=== PATIENT | female | born 1975 | race African-American/Black ===

== ENCOUNTER → 2018-01-11 | Day surgery (SDC) | payer OTHER ==
--- NOTE | 2018-01-11 14:16 | OP ---
DATE OF OPERATION: 01/11/2018 PREOPERATIVE DIAGNOSIS: Abnormal right mammography. POSTOPERATIVE DIAGNOSIS: Abnormal right mammography. PROCEDURE: Right stereotactic needle biopsy with clip. SURGEON: Shayla Maldonado MD ANESTHESIA: Local. COMPLICATIONS: None. This is a sterile procedure. INDICATION FOR PROCEDURE: Patient presented with a screening mammography that noted a new cluster of microcalcifications posterior to her prior lumpectomy site for DCIS in the outer right breast. Recommendation was for needle biopsy. The procedure was discussed with her, including the need for a clip. PROCEDURE IN DETAIL: Patient brought to [facility] [place], laid prone on the Lor[place] table. Using the lateral approach, the calcifications at the lumpectomy site posteriorly were identified. A sterile prepped obtained. A target was chosen. There was a positive stroke margin. Using Betadine and 1% lidocaine, a 10-gauge Suros device was used to take several cores from this area. Cores showed calcifications within them. These were handled using calcification protocol. A clip was deployed in the area. Hemostasis assured with direct pressure. The incision was closed with Steri-Strips. She tolerated the procedure well and left the breast imaging center in good condition. SHAYLA MALDONADO M.D. [id number]
--- NOTE | 2018-01-12 16:17 | PATH ---
Surgical Pathology Report Patient Name: HIEN PRATHER [facility]. Rec. #: [id number] /Age/Gender: 1975 (Age: 42) / F Account: [id number] Location: [facility] Taken: 01/11/2018 Received: 01/11/2018 Reported: 01/12/2018 Physicians: Shayla Chen M.D. Specimen(s) Received A: LEFT BREAST SPECIMEN WITH CALCIFICATIONS B: LEFT BREAST SPECIMEN WITHOUT CALCIFICATIONS Clinical History History of right breast lumpectomy for DCIS with new microcalcification at lumpectomy site Mammographic findings: Microcalcification, suspicious Final Diagnosis A. BREAST, RIGHT, WITH CALCIFICATIONS, STEREOTACTIC BIOPSY: DUCTAL CARCINOMA IN SITU (DCIS), MICROPAPILLARY AND FLAT TYPE, INTERMEDIATE NUCLEAR GRADE WITH MODERATE NECROSIS AND ASSOCIATED CALCIFICATIONS. B. BREAST, RIGHT, WITHOUT CALCIFICATIONS, STITCH AT THE BIOPSY: FOCAL ATYPICAL DUCTAL HYPERPLASIA (ADH) AND FLAT EPITHELIAL ATYPIA (FEA) WITH ASSOCIATED CALCIFICATIONS. Results of ER and AK studies performed on block A at [facility] are as follows: ER (clone [id number] mouse monoclonal antibody by Leica): > 90 % nuclear staining with strong intensity (Positive). AK (clone16 mouse monoclonal antibody by Leica): > 90 % nuclear staining with strong intensity (Positive). Comment: Case discussed with on 01/12/18. Positive and negative controls (internal if applicable) show appropriate results. Formalin fixation and cold ischemic times are within current ASCO/CAP recommendations for ER, AK and Her2 testing. Electronically Signed Li Anderson M.D. Gross Description A. Received in formalin labeled "right breast with calcifications," are 5 costello-yellow, cylindrical portions of fibroadipose tissue ranging from 0.5-3.2 cm in length and averaging 0.3 cm in diameter. The specimens are submitted in toto in one cassette. B. Received in formalin labeled "right breast without calcifications," are 4 costello-yellow, cylindrical portions of fibroadipose tissue ranging from 0.5-2.6 cm in length and averaging 0.3 cm in diameter. The specimens are submitted in toto in one cassette. Time to formalin fixation: 5 minutes Total formalin fixation time: Approximately 7 hours. 01/11/201801/11/2018
== END | disposition home or self-care (01) ==
LOC: FMAMMOTONE 09:20
PROVIDERS: ATTEND Surgery
PROC: 0HBT3ZX Excision of Right Breast, Percutaneous Approach, Diagnostic (ICD-10-PCS; principal; 2018-01-11)
DX: D05.11 Intraductal carcinoma in situ of right breast (principal); R92.8 Other abnormal and inconclusive findings on diagnostic imaging of breast; N60.91 Unspecified benign mammary dysplasia of right breast
CPT/HCPCS: 19081; 87899; 88305-TC; 88342-TC; A4648

== ENCOUNTER 2018-02-16 18:34 | Emergency (ER) | payer OTHER ==
--- NOTE | 2018-02-16 18:57 | PDOC ---
Rapid Medical Evaluation Time Seen by Provider: 02/16/18 18:56 Medical Evaluation: Allergies Allergy/AdvReac Type Severity Reaction Status Date / Time No Known Drug Allergies Allergy Verified 04/14/16 08:23 I have performed a brief in-person evaluation of this patient. The patient presents with a chief complaint of: ear and throat pain since yesterday. No fever. No cough. Patient had flu and pneumonia vaccines this year Pertinent physical exam findings: Tender anterior cervical lymphadenopathy. Patient appears very well. Suspect allergies. Patient's requesting test. I have ordered the following: none The patient will proceed to the ED for further evaluation.
[2018-02-16 19:00] VITALS: BP 158/124; PULSE 79; TEMP 98.3; BMI 41.1
--- NOTE | 2018-02-16 20:04 | PDOC ---
History of Present Illness - General Chief Complaint: Cold Symptoms Stated Complaint: SORE THROAT/EAR PAIN Time Seen by Provider: 02/16/18 18:56 History Source: Patient Exam Limitations: No Limitations - History of Present Illness Initial Comments: 02/16/18 19:48 42-year-old female presents to the ED with a sore throat, chills and painful swallowing since yesterday. Patient states took Tylenol prior to arrival. Patient has no other complaints including cough, shortness of breath or headache. Patient denies stiff neck or thyroid disorder. Timing/Duration: reports: yesterday Severity: reports: mild Associated Symptoms: reports: fever/chills, sore throat Past History - Past Medical History Allergies/Adverse Reactions: Allergies Allergy/AdvReac Type Severity Reaction Status Date / Time No Known Drug Allergies Allergy Verified 02/16/18 18:56 Home Medications: Ambulatory Orders Amlodipine Besylate [Norvasc -] 10 mg PO DAILY 12/21/12 Aspirin [ASA -] 81 mg PO DAILY 11/04/14 Furosemide [Lasix -] 20 mg PO DAILY 11/04/14 Diazepam [Valium] 5 mg PO BID PRN #8 tablet MDD 2 04/14/16 Multivitamin [Poly-Vitamin] 1 each PO DAILY 04/14/16 Asthma: Yes Cancer: Yes (BREAST) COPD: No GI Disorders: Yes (ACID REFLUX) HTN: Yes Thyroid Disease: No - Surgical History Abdominal Surgery: Yes Cholecystectomy: Yes - Suicide/Smoking/Psychosocial Hx Smoking Status: No (STOPPED 12/07/12) Smoking History: Never smoked Have you smoked in the past 12 months: Yes Number of Cigarettes Smoked Daily: 4 If you are a former smoker, when did you quit?: 07/05/14 Hx Alcohol Use: No Drug/Substance Use Hx: No Substance Use Type: None Hx Substance Use Treatment: No Patient Lives Alone: No Lives with/in: spouse/SO Review of Systems - Review of Systems Able to Perform ROS?: Yes Constitutional: Yes: Fever HEENTM: Yes: Throat Pain, Difficulty Swallowing Respiratory: No: Symptoms reported Cardiac (ROS): No: Symptoms Reported ABD/GI: No: Symptoms Reported : No: Symptoms Reported Musculoskeletal: No: Symptoms Reported Integumentary: No: Symptoms Reported Neurological: No: Symptoms reported *Physical Exam - Vital Signs Last Vital Signs Temp Pulse Resp BP Pulse Ox 98.3 F 79 17 158/124 97 02/16/18 18:56 02/16/18 18:56 02/16/18 18:56 02/16/18 18:56 02/16/18 18:56 - Physical Exam General Appearance: Yes: Nourished, Appropriately Dressed. No: Apparent Distress HEENT: positive: EOMI, ADDIS, TMs Normal, Pharyngeal Erythema, Tonsillar Erythema. negative: Tonsillar Exudate Neck: negative: Supple, Lymphadenopathy (R), Lymphadenopathy (L) Respiratory/Chest: positive: Lungs Clear, Normal Breath Sounds. negative: Respiratory Distress, Accessory Muscle Use Cardiovascular: positive: Regular Rhythm, Regular Rate, Murmur Gastrointestinal/Abdominal: positive: Soft Extremity: positive: Normal Capillary Refill Integumentary: positive: Normal Color, Warm, Moist Neurologic: positive: Motor Strength 5/5 (ambulatory) ED Treatment Course - ADDITIONAL ORDERS Additional order review: Laboratory Results 02/16/18 19:12 Urine HCG, Qual Negative Medical Decision Making - Medical Decision Making 02/16/18 20:08 Patient complains of sore throat and fever. Patient also requesting a test since she did not get her menses this week. Rapid strep and urine sent from rapid medical evaluation. Urine negative upon my arrival. Rapid strep pending. We'll treat patient based on clinical exam for tonsillitis. *DC/Admit/Observation/Transfer Diagnosis at time of Disposition: Tonsillitis - Discharge Dispostion Disposition: HOME Condition at time of disposition: Good - Referrals Referrals: Tawanna Starks [Primary Care Provider] - - Patient Instructions Printed Discharge Instructions: DI for Pharyngitis/Tonsillopharyngitis -- Adult Additional Instructions: I recommend taking the amoxicillin as prescribed and taking Tylenol or Motrin for discomfort. - Post Discharge Activity
== END 2018-02-16 20:13 | disposition home or self-care (01) ==
LOC: JERFT 18:34
DX: J03.90 Acute tonsillitis, unspecified (principal)
CPT/HCPCS: 84703; 87070; 87430; 99281-25

== ENCOUNTER 2018-03-16 07:53 | Inpatient (IN) | payer OTHER ==
[2018-03-15 13:00] VITALS: BMI 41.1
[2018-03-16] MEDS ORDERED: BUPIVACAINE HCL/PF 0.5% (5MG/ML) 10 ML VIAL ONE (09:12)
[2018-03-16] MEDS ORDERED: BUPIVACAINE LIPOSOME/PF (EXPAREL) 266 MG/20 ML VIAL NR ONE (09:30)
--- NOTE | 2018-03-16 11:17 | HP ---
History & Physical Update - History History: No Change - Physical Physical: No Change - Assessment Assessment: No Change - Plan Plan: No Change (no changes since visit with Dr. Bradford on 03/07/18)
[2018-03-16] MEDS ORDERED: DEXAMETHASONE SOD PHOSPHATE 4 MG/1 ML VIAL ONE (11:37)
[2018-03-16] MEDS ORDERED: PROPOFOL 20 ML ONE (11:37)
[2018-03-16] MEDS ORDERED: LIDOCAINE HCL/PF 2% SDV 5ML VIAL ONE (11:37)
[2018-03-16] MEDS ORDERED: ROCURONIUM BROMIDE 50 MG/5 ML VIAL ONE (11:37)
[2018-03-16] MEDS ORDERED: MIDAZOLAM HCL 2 MG/2 ML SINGLE DOSE VIAL ONE (11:37)
[2018-03-16] MEDS ORDERED: ceFAZolin SODIUM 1 GM VIAL IVPB ONE (11:57)
[2018-03-16] MEDS ORDERED: ceFAZolin SODIUM 1 GM VIAL ONE (12:08)
[2018-03-16] MEDS ORDERED: LIDOCAINE HCL 1%, 10 MG/ML (20ML VIAL) NR ONE (12:09)
[2018-03-16 13:39] VITALS: TEMP 98
--- NOTE | 2018-03-16 14:02 | OP ---
DATE OF OPERATION: 03/16/2018 PREOPERATIVE DIAGNOSIS: Right breast ductal carcinoma in situ. POSTOPERATIVE DIAGNOSIS: Right breast ductal carcinoma in situ. PROCEDURE: Right breast wire localized lumpectomy. SURGEON: Shayla Maldonado MD ANESTHESIA: General ESTIMATED BLOOD LOSS: Minimal. COMPLICATIONS: None. This was a sterile procedure. INDICATIONS FOR PROCEDURE: The patient had a right breast lumpectomy in 2014 for right breast DCIS but did not follow through with adjuvant radiation and presented with a new mammogram and noted new microcalcifications at the lumpectomy bed and I did a stereotactic needle biopsy that again showed the same DCIS. Recommendation was a lumpectomy and radiation. The procedure was discussed with all of the questions answered. PROCEDURE IN DETAIL: The patient was brought to [facility] in [facility] and taken down to breast imaging where a wire was used to localize the clip in the upper outer right breast. She was brought to the operating room and after induction of general anesthesia and IV antibiotics; the right breast was prepped and draped in the usual sterile fashion. The area in the upper outer right breast was anesthetized with 1% lidocaine without epinephrine. The prior lumpectomy incision was sharply incised and the wire was used as a guide to get down to the area of interest. This was excised en bloc and tagged with a long stitch lateral and short stitch superior and sent as a right breast lumpectomy for special radiographs. I felt I was close anteriorly on the wire; therefore, I took a new anterior margin of the stitch at the new margin and I also took a new superior margin with a stitch at the old margin. These were all sent to Pathology for permanent section. Specimen radiograph shows the clip and wire to be intact within the specimen. This was sent to Pathology for permanent section. Hemostasis was assured with electrocautery. The parenchyma was approximated with interrupted 2-0 Vicryl. The skin was approximated with 2-0 Vicryl and running 4-0 Prolene. A sterile dressing with Tegaderm and 4 x 4s were applied. She tolerated the procedure well and was taken to the recovery room in good condition. SHAYLA MALDONADO M.D. [id number]
[2018-03-16] MEDS ORDERED: ONDANSETRON 4 MG/2 ML VIAL IVPUSH PRN (14:28)
[2018-03-16] MEDS ORDERED: oxyCODONE HCL 5 MG TABLET PO PRN ×2 (14:29)
[2018-03-16] MEDS ORDERED: LACTATED RINGERS SOLUTION 1,000 ML IV SCH (14:30)
[2018-03-16] MEDS ORDERED: oxyCODONE HCL 5 MG TABLET ONE (14:45)
[2018-03-16] MEDS ORDERED: oxyCODONE HCL 5 MG TABLET PO ONE (14:50)
[2018-03-16 16:57] VITALS: BP 152/85; PULSE 75
--- NOTE | 2018-03-20 09:57 | PATH ---
Surgical Pathology Report Patient Name: HIEN PRATHER [facility] Rec. #: [id number] /Age/Gender: 1975 (Age: 42) / F Account: [id number] Location: [facility] Taken: 03/16/2018 Received: 03/16/2018 Reported: 03/20/2018 Physicians: Shayla Chen M.D. Specimen(s) Received A: RIGHT BREAST LUMPECTOMY B: RIGHT BREAST NEW SUPERIOR MARGIN, STITCH ORDAZ OLD MARGIN C: RIGHT BREAST NEW ANTERIOR MASS, STITCH ORDAZ NEW MARGIN Clinical History DCIS, History of right breast DCIS status post lumpectomy 2014 Final Diagnosis A. BREAST, RIGHT, LUMPECTOMY: DUCTAL CARCINOMA IN SITU (DCIS), FLAT, SOLID AND MICROPAPILLARY TYPE, HIGH NUCLEAR GRADE WITH EXTENSIVE NECROSIS, PRESENT IN ONE OF NINE SLIDES (12/06). IN SITU CARCINOMA MEASURES 7 MM IN GREATEST DIMENSION, MICROSCOPICALLY. SURGICAL MARGINS ARE UNINVOLVED BY CARCINOMA; CARCINOMA IS 1.1 CM FROM CLOSEST DEEP MARGIN. SEE SPECIMEN B-C FOR ADDITIONAL MARGINS. REMAINDER OF BREAST TISSUE SHOWS STROMAL FIBROSIS, MICROCYSTS, COLUMNAR CELL CHANGE, FOCAL ATYPICAL DUCTAL HYPERPLASIA AND FLAT EPITHELIAL ATYPIA (FEA). PRIOR BIOPSY CHANGES ARE PRESENT. PATHOLOGIC STAGE (PTNM): pTis pNx. SEE DCIS CASE SUMMARY BELOW. B. BREAST, RIGHT, NEW SUPERIOR MARGIN, EXCISION: FLAT EPITHELIAL ATYPIA (FEA) WITH ASSOCIATED MICROCALCIFICATIONS. C. BREAST, RIGHT, NEW ANTERIOR MARGIN, EXCISION: FOCAL FLAT EPITHELIAL ATYPIA (FEA) WITH ASSOCIATED RARE MICROCALCIFICATIONS. Comments DCIS of the Breast: Surgical Pathology Cancer Case Summary (Based on AJCC TNM 8 th edition) Procedure _X_ Excision (less than total mastectomy) Specimen Laterality _X_ Right Size (Extent) of DCIS Estimated size (extent) of DCIS (greatest dimension using gross and microscopic evaluation): at least (millimeters) _7__ mm Number of blocks with DCIS: _1__ Number of blocks examined: _9__ Histologic Type _X_ Ductal carcinoma in situ Architectural Patterns _X_ Micropapillary _X_ Solid _X_ Other (specify): flat Nuclear Grade _X_ Grade III (high) Necrosis _X_ Present, central (expansive "comedo" necrosis) Margins _X_ Uninvolved by DCIS Distance from closest margin (millimeters): 11 mm Specify closest margin: Deep Regional Lymph Nodes _X_ No lymph nodes submitted or found Pathologic Stage Classification (pTNM, AJCC 8th Edition) Primary Tumor (pT) _X_ pTis (DCIS): Ductal carcinoma in situ Regional Lymph Nodes (pN) (None) (pN) : pNX Microcalcifications _X_ Present in nonneoplastic tissue Electronically Signed Oanh Andino M.D. Gross Description A. Received fresh on an AccuGrid, labeled "right breast lumpectomy," is a 6.5 x 5.0 x 2.0 cm. costello-yellow, irregular, portion of fibroadipose tissue with a needle localization wire present. There is a short suture marking the superior aspect and a long suture marking the lateral aspect, per the surgeon. There is no skin or nipple present. The specimen is inked as follows: superior and lateral blue; inferior green; medial yellow; anterior red; deep black. The specimen is serially sectioned from superior to inferior. Sectioning reveals a possible previous biopsy site surrounded by dense white fibrous tissue. The remaining breast parenchyma displays abundant dense white fibrous tissue. No definitive mass is identified. Clerk Entry Level sections are submitted in 9 cassettes as follows: [id number] previous biopsy site sequentially submitted from superior to inferior (each with anterior, lateral and deep margins); 5-6-medial margin; 7-superior margin; 3-7-gszhdlrs margin. Total formalin fixation time: Approximately 6 hours B. Received in formalin labeled "right breast new superior margin," is a 3.0 x 2.5 x 1.2 cm portion of fibroadipose tissue with a suture marking the old margin, per the surgeon. The new margin is inked blue and the specimen is serially sectioned. The specimen is entirely and sequentially submitted in 5 cassettes. C. Received in formalin labeled "right breast new anterior margin," is a 3.0 x 2.3 x 0.8 cm portion of fibroadipose tissue with a suture marking the old margin, per the surgeon. The new margin is inked blue and the specimen is serially sectioned. The specimen is entirely and sequentially submitted in 4 cassettes. 03/16/201803/16/2018
== END 2018-03-16 16:30 | disposition home or self-care (01) | DRG 363 ==
LOC: JSAMEDAYSX 07:53 → EDSTATUS 11:00
PROVIDERS: ADMIT Surgery; ATTEND Surgery
PROC: 0HBT0ZZ Excision of Right Breast, Open Approach (ICD-10-PCS; principal; 2018-03-16 11:00)
DX: C50.911 Malignant neoplasm of unspecified site of right female breast (principal); K21.9 Gastro-esophageal reflux disease without esophagitis; I10 Essential (primary) hypertension; D64.9 Anemia, unspecified; E66.01 Morbid (severe) obesity due to excess calories; Z68.41 Body mass index [BMI] 40.0-44.9, adult
CPT/HCPCS: 19281; 84703; 88307-TC; 94760

== ENCOUNTER 2019-08-08 20:06 | Emergency (ER) | payer OTHER ==
--- NOTE | 2019-08-08 20:11 | PDOC ---
Rapid Medical Evaluation Time Seen by Provider: 08/08/19 20:08 Medical Evaluation: Allergies Allergy/AdvReac Type Severity Reaction Status Date / Time No Known Drug Allergies Allergy Verified 03/15/18 12:53 08/08/19 20:08 Pt presents for palpitations and chest pain for 3 days. Also admits to associate shortness of breath. Endorses sharp pain that goes down her L arm. Nothing makes the pain better or worse. Exam: RRR, S1S2 present (-) m/r/g Orders: labs, ekg, cxr, IV Pt to proceed to the ER for further evaluation Discharge Disposition - Diagnosis Palpitations - Referrals - Patient Instructions - Post Discharge Activity
[2019-08-08 20:12] VITALS: BP 142/99; PULSE 90; TEMP 98.6; BMI 44.6
[2019-08-08 21:08] LABS: BASO % 0.4 % (0-2.0); EOS % 2.2 % (0-4.5); HEMOGLOBIN 11.6 GM/dL (10.7-15.3); LYMPH % 26.9 % (8-40); MCHC 33.2 g/dl (32.0-36.0); MEAN CELL VOLUME 81.1 fl (80-96); MEAN PLT VOLUME 9.9 fl (7.5-11.1); MONO % 6.5 % (3.8-10.2); PLATELET COUNT 238 K/MM3 (134-434); RBC 4.31 M/mm3 (3.60-5.2); RDW 14.9 % (11.6-15.6); WHITE BLOOD COUNT 5.4 K/mm3 (4.0-10.0)
[2019-08-08 21:40] LABS: ALBUMIN 3.1 g/dl (3.4-5.0); ALK PHOS 66 U/L (45-117); ANION GAP 4 MMOL/L (8-16); BILIRUBIN,TOTAL 0.2 mg/dL (0.2-1); BLOOD UREA NITROGEN 11.7 mg/dL (7-18); CALCIUM 8.3 mg/dL (8.5-10.1); CHLORIDE 106 mmol/L (98-107); CO2 31 mmol/L (21-32); CREATININE 0.8 mg/dL (0.55-1.3); GLUCOSE,RANDOM 90 mg/dL (74-106); POTASSIUM 3.8 mmol/L (3.5-5.1); SGOT/AST 8 U/L (15-37); SGPT/ALT 11 U/L (13-61); SODIUM 141 mmol/L (136-145); TOT PROT 6.8 g/dl (6.4-8.2)
[2019-08-08 21:43] LABS: MAGNESIUM 2.2 mg/dL (1.8-2.4)
--- NOTE | 2019-08-08 21:48 | PDOC ---
History of Present Illness - General Chief Complaint: Chest Pain Stated Complaint: CHEST PAIN & HEADACHE Time Seen by Provider: 08/08/19 20:08 History Source: Patient Exam Limitations: No Limitations - History of Present Illness Initial Comments: 08/08/19 21:42 Jessica Johnson is a 44yF w PMHx HTN, GERD, gastric sleeve (2016), R lumpectomy on chemo presenting w chest pain. Been having chest palpitations for last 3 months, lasting 4 seconds, every 30minutes, worse in mornings. Last 3 days has intermittent sharp chest pains in sternal region radiating down L arm. Also endorses L lateral neck stiffness. Did not take omeprazole today. Seen preparer making department who recommended holter moniter, did not do it yet. Denies fever, nausea/vomiting, SOB, AB pain, urinary/bowel mvmt changes. Past History - Past Medical History Allergies/Adverse Reactions: Allergies Allergy/AdvReac Type Severity Reaction Status Date / Time No Known Drug Allergies Allergy Verified 08/08/19 21:43 Home Medications: Ambulatory Orders Amlodipine Besylate [Norvasc -] 5 mg PO DAILY 08/08/19 Aspirin 81 mg PO DAILY 08/08/19 Metformin HCl [Glucophage] 500 mg PO DAILY 08/08/19 Omeprazole 20 mg PO DAILY 08/08/19 Anemia: Yes (IN THE PAST) Asthma: Yes Cancer: Yes (BREAST) Cardiac Disorders: No CVA: No COPD: No CHF: No Dementia: No Diabetes: No GI Disorders: Yes (ACID REFLUX) Disorders: No HTN: Yes ("I TAKE A BABY ASA FOR HTN") Hypercholesterolemia: No Liver Disease: No Seizures: No Thyroid Disease: No - Surgical History Abdominal Surgery: Yes (GASTRIC SLEEVE 04/2017) Appendectomy: No Cardiac Surgery: No Cholecystectomy: Yes Lung Surgery: No Neurologic Surgery: No Orthopedic Surgery: No - Suicide/Smoking/Psychosocial Hx Smoking Status: No (STOPPED 12/07/12) Smoking History: Never smoked Have you smoked in the past 12 months: Yes Number of Cigarettes Smoked Daily: 4 If you are a former smoker, when did you quit?: 07/05/14 Hx Alcohol Use: No Drug/Substance Use Hx: No Substance Use Type: None Hx Substance Use Treatment: No Review of Systems - Review of Systems Constitutional: No: Chills, Fever HEENTM: No: Eye Pain, Nose Pain, Throat Pain, Mouth Pain Respiratory: No: Cough, Shortness of Breath Cardiac (ROS): Yes: Chest Pain, Palpitations. No: Syncope ABD/GI: No: Abdominal Distended, Constipated, Diarrhea, Nausea, Vomiting : No: Burning, Dysuria, Discharge, Flank Pain, Hematuria, Incontinence Musculoskeletal: No: Back Pain, Joint Pain, Muscle Pain, Muscle Weakness Integumentary: No: Bruising, Erythema, Flushing Neurological: No: Headache, Numbness, Seizure, Tingling, Tremors Psychiatric: No: Anxiety, Depression, Stressors Endocrine: No: Excessive Sweating, Flushing, Intolerance to Cold, Intolerance to Heat Hematologic/Lymphatic: No: Anemia, Blood Clots, Easy Bleeding *Physical Exam - Vital Signs Last Vital Signs Temp Pulse Resp BP Pulse Ox 98.6 F 90 18 142/99 97 08/08/19 20:08/08/19 20:08/08/19 20:08/08/19 20:08/08/19 20:09 - Physical Exam General Appearance: Yes: Nourished, Appropriately Dressed. No: Apparent Distress HEENT: positive: EOMI, ADDIS, Normal Voice, Nasal Congestion, Hearing Grossly Normal. negative: Scleral Icterus (R), Scleral Icterus (L), Rhinorrhea Neck: positive: Tender (L SCM muscle tense) Respiratory/Chest: positive: Wheezing. negative: Chest Tender, Respiratory Distress, Accessory Muscle Use, Crackles, Rales, Rhonchi, Stridor Cardiovascular: positive: Regular Rhythm, Regular Rate, S1, S2. negative: Edema , Murmur Extremity: positive: Normal Capillary Refill Integumentary: positive: Normal Color Neurologic: positive: marble machine tender II-XII NML intact, Fully Oriented, Alert, Normal Mood/ Affect, Normal Response, Respond to painful stimul, Responsive. negative: Sensory Deficit, Confused, Disoriented ED Treatment Course - LABORATORY CBC & Chemistry Diagram: 08/08/19 16:33 08/08/19 16:33 - ADDITIONAL ORDERS Additional order review: Laboratory Results 08/08/19 16:33 Sodium 141 Potassium 3.8 Chloride 106 Carbon Dioxide 31 Anion Gap 4 L BUN 11.7 Creatinine 0.8 Est GFR (CKD-EPI)AfAm 102.47 Est GFR (CKD-EPI)NonAf 88.41 Random Glucose 90 Calcium 8.3 L Total Bilirubin 0.2 AST 8 L ALT 11 L Alkaline Phosphatase 66 Creatine Kinase 73 Troponin I < 0.02 Total Protein 6.8 Albumin 3.1 L 08/08/19 16:33 RBC 4.31 MCV 81.1 MCHC 33.2 RDW 14.9 D MPV 9.9 Neutrophils % 64.0 Lymphocytes % 26.9 Monocytes % 6.5 Eosinophils % 2.2 Basophils % 0.4 Medical Decision Making - Medical Decision Making 08/08/19 21:42 CBC CMP trop EKG CXR CBC CMP normal, trop neg duoneb, maalox, pepcid, 1L NS Jessica Johnson is a 44yF w PMHx HTN, GERD, gastric sleeve (2017) presenting w chest pain. Likely d/t gerd based on pmhx of gerd, chronic nature. Given pepcid , maalox, 1L NS which relieved chest discomfort. Unlikely ACS d/t neg trop, EKG shows normal sinus rhythm. CXR shows clear lung li ruling out lung infections. D/c home w cardiology f/u *DC/Admit/Observation/Transfer Diagnosis at time of Disposition: Palpitations - Discharge Dispostion Disposition: HOME Condition at time of disposition: Improved Decision to Admit order: No - Referrals Referrals: Adrianna Hay MD [Primary Care Provider] - - Patient Instructions Printed Discharge Instructions: DI for Chest Pain Additional Instructions: You were seen for chest palpitations. You were given medication to relieve your chest discomfort. Your labs and imaging do not show anything concerning. Please follow up with your preparer making department for your chest palpitations. Continue to drink lots of fluids Come back to the ED if you have worsening chest pain, cannot breathe, or start vomiting. Print Language: SINHALA - Post Discharge Activity
[2019-08-08] MEDS ORDERED: FAMOTIDINE 20 MG/50 ML IVPB 20 MG/50 ML MG IVPB ONE ×2 (21:53→22:07)
[2019-08-08] MEDS ORDERED: MAG HYDROX/AL HYDROX/SIMETH 30 ML UNIT-DOSE CUP PO ONE (21:53)
[2019-08-08] MEDS ORDERED: SODIUM CHLORIDE 0.9% 1000 ML INFUS.BAG IV ONE (21:53)
[2019-08-08] MEDS ORDERED: ALBUTEROL SO4 2.5/IPRATROPIUM 0.5 INH SOL 3 ML VIAL.NEB. NEB ONE ×2 (21:53→22:06)
[2019-08-08] MEDS ORDERED: MAG HYDROX/AL HYDROX/SIMETH 30 ML UNIT-DOSE CUP ONE (22:06)
--- NOTE | 2019-08-08 23:16 | PDOC ---
Documentation entered by Kyung Gee SCRIBE, acting as scribe for Colleen Harris DO. Colleen Harris DO: This documentation has been prepared by the chapinibe, Kyung Gee SCRIBE, under my direction and personally reviewed by me in its entirety. I confirm that the documentation accurately reflects all work, treatment, procedures, and medical decision making performed by me. Attending Attestation - Resident Resident Name: Bharath Vasquez - ED Attending Attestation I have performed the following: I have examined & evaluated the patient, The case was reviewed & discussed with the resident, I agree w/resident's findings & plan, Exceptions are as noted - HPI HPI: 08/08/19 22:18 The patient is a 44-year-old female, with a past medical history of HTN, GERD, gastric sleeve (2017), s/p RT lumpectomy (on chemo), who presents to the ED with 3 days of chest pain and palpitations. Patient describes the chest pain as sharp in sensation. No PE risk factors. The patient denies any fevers, chills, nausea, vomiting, diarrhea, or abdominal pain. Denies any shortness of breath. Denies any weakness, dizziness, or changes in strength or sensation. Allergies: NKDA - Physicial Exam PE: 08/08/19 22:19 GENERAL: Awake, alert, and fully oriented, in no acute distress HEAD: No signs of trauma EYES: PERRLA, EOMI, sclera anicteric, conjunctiva clear ENT: Auricles normal inspection, hearing grossly normal, nares patent, oropharynx clear without exudates. Moist mucosa NECK: Normal ROM, supple, no lymphadenopathy, JVD, or masses LUNGS: (+)Wheezing. No crackles HEART: Regular rate and rhythm, normal S1 and S2, no murmurs, rubs or gallops ABDOMEN: Soft, nontender, normoactive bowel sounds. No guarding, no rebound. No masses EXTREMITIES: Normal range of motion, no edema. No clubbing or cyanosis. No cords, erythema, or tenderness NEUROLOGICAL: Cranial nerves II through XII grossly intact. Normal speech, normal gait SKIN: Warm, Dry, normal turgor, no rashes or lesions noted - Medical Decision Making 08/08/19 23:07 I, Dr. Colleen Kurkowski, DO, attest that this document has been prepared under my direction and personally reviewed by me in its entirety. I further attest, that it accurately reflects all work, treatment, procedures and medical decision -making performed by me. 08/08/19 23:08 a/p: 44yo female with palpitations today and a 6 second episode of sharp cp -also c/o burning sensation in her chest and sour taste in back of mouth -hx of gastritis and did not take her nexium today -pt denies abd pain -katlyn send labs, ekg, cxr -will give neb for wheezing and gi cocktail -will monitor and reassess 08/08/19 23:53 pt feels much better cxr clear trop and tsh normal repeat ekg: sinus at 91, nl axis, nl interval, no acute s/t twave findings stable for dc to home Heart Score/ECG Review - ECG Intrepretation Comment:: 08/08/19 23:15 sinus at 85, low voltage ekg, no acute st/t wave findings, abnl ekg
--- NOTE | 2019-08-09 15:27 | EKG ---
Test Reason : Blood Pressure : / mmHG Vent. Rate : 091 BPM Atrial Rate : 091 BPM P-R Int : 154 ms QRS Dur : 088 ms QT Int : 384 ms P-R-T Axes : 055 011 010 degrees QTc Int : 472 ms NORMAL SINUS RHYTHM POSSIBLE LEFT ATRIAL ENLARGEMENT NONSPECIFIC T WAVE ABNORMALITY PROLONGED QT ABNORMAL ECG WHEN COMPARED WITH ECG OF 08-AUG-2019 20:19, NO SIGNIFICANT CHANGE WAS FOUND Confirmed by GALILEO SCHROEDER, DILCIA ([id number]) on 08/09/2019 3:27:05 PM Referred By: Confirmed By:DILCIA GURROLA MD
--- NOTE | 2019-08-09 15:29 | EKG ---
Test Reason : Blood Pressure : / mmHG Vent. Rate : 085 BPM Atrial Rate : 085 BPM P-R Int : 152 ms QRS Dur : 084 ms QT Int : 364 ms P-R-T Axes : 000 -20 -20 degrees QTc Int : 433 ms NORMAL SINUS RHYTHM NONSPECIFIC T WAVE ABNORMALITY ABNORMAL ECG WHEN COMPARED WITH ECG OF 27-SEP-2015 15:43, ST NO LONGER DEPRESSED IN ANTERIOR LEADS Confirmed by GALILEO SCHROEDER, DILCIA ([id number]) on 08/09/2019 3:28:56 PM Referred By: Confirmed By:DILCIA GURROLA MD
== END 2019-08-09 00:21 | disposition home or self-care (01) ==
LOC: JER 20:06
PROC: 3E0337Z Introduction of Electrolytic and Water Balance Substance into Peripheral Vein, Percutaneous Approach (ICD-10-PCS; principal; 2019-08-08)
PROC: 3E0F7GC Introduction of Other Therapeutic Substance into Respiratory Tract, Via Natural or Artificial Opening (ICD-10-PCS; 2019-08-08)
PROC: 3E033GC Introduction of Other Therapeutic Substance into Peripheral Vein, Percutaneous Approach (ICD-10-PCS; 2019-08-08)
DX: R00.2 Palpitations (principal); I10 Essential (primary) hypertension; Z98.84 Bariatric surgery status
CPT/HCPCS: 36415; 71046-TC-FY; 80053; 82550; 83735; 84443; 84484; 84703; 85025; 93005; 93010; 99283-25; J7030

== ENCOUNTER 2019-08-21 14:29 | Emergency (ER) | payer OTHER ==
--- NOTE | 2019-08-21 14:37 | PDOC ---
Rapid Medical Evaluation Time Seen by Provider: 08/21/19 14:34 Medical Evaluation: Allergies Allergy/AdvReac Type Severity Reaction Status Date / Time No Known Drug Allergies Allergy Verified 08/08/19 21:43 08/21/19 14:34 HPI: Sent by bi manager for evaluation of HTN prior to stress test 196-[address] Vieyra symptomatic with neck pain since this AM PE: No gross deficits ORDERS: Labs CT scan Discharge Disposition - Diagnosis HTN (hypertension) - Referrals - Patient Instructions - Post Discharge Activity
[2019-08-21 14:40] VITALS: TEMP 98.3; BMI 44.6
[2019-08-21] MEDS ORDERED: SODIUM CHLORIDE 1,000 ML IV SCH (14:45)
[2019-08-21 15:26] LABS: BASO % 0.6 % (0-2.0); EOS % 0.7 % (0-4.5); HEMATOCRIT 38.5 % (32.4-45.2); HEMOGLOBIN 12.8 GM/dL (10.7-15.3); LYMPH % 42.7 % (8-40); MCH 26.5 pg (25.7-33.7); MCHC 33.2 g/dl (32.0-36.0); MEAN CELL VOLUME 79.8 fl (80-96); MEAN PLT VOLUME 10.1 fl (7.5-11.1); MONO % 5.7 % (3.8-10.2); NEUT % 50.3 % (42.8-82.8); PLATELET COUNT 230 K/MM3 (134-434); RBC 4.82 M/mm3 (3.60-5.2); RDW 15.1 % (11.6-15.6); WHITE BLOOD COUNT 5.4 K/mm3 (4.0-10.0)
[2019-08-21 16:02] LABS: ALBUMIN 3.3 g/dl (3.4-5.0); ALK PHOS 66 U/L (45-117); ANION GAP 8 MMOL/L (8-16); BILIRUBIN,TOTAL 0.3 mg/dL (0.2-1); BLOOD UREA NITROGEN 10.8 mg/dL (7-18); CALCIUM 8.9 mg/dL (8.5-10.1); CHLORIDE 105 mmol/L (98-107); CHOLESTEROL 170 mg/dL (50-200); CO2 26 mmol/L (21-32); CREATININE 0.8 mg/dL (0.55-1.3); GLUCOSE,RANDOM 83 mg/dL (74-106); HDL CHOLESTEROL 68 mg/dL (40-60); POTASSIUM 3.7 mmol/L (3.5-5.1); SGOT/AST 6 U/L (15-37); SGPT/ALT 11 U/L (13-61); SODIUM 139 mmol/L (136-145); TOT PROT 7.2 g/dl (6.4-8.2); TRIGLYCERIDES 55 mg/dL (0-150)
[2019-08-21 16:07] LABS: INR 1.04 (0.83-1.09); PROTHROMBIN TIME (PATIENT) 12.3 SEC (9.7-13.0)
--- NOTE | 2019-08-21 16:30 | PDOC ---
*Physical Exam - Vital Signs Last Vital Signs Temp Pulse Resp BP Pulse Ox 98.3 F 84 18 156/93 98 08/21/19 14:38 08/21/19 14:38 08/21/19 14:38 08/21/19 14:38 08/21/19 14:38 ED Treatment Course - LABORATORY CBC & Chemistry Diagram: 08/21/19 14:58 08/21/19 14:58 - ADDITIONAL ORDERS Additional order review: Laboratory Results 08/21/19 08/21/19 08/21/19 14:58 14:58 14:58 PT with INR 12.30 INR 1.04 Sodium 139 Potassium 3.7 Chloride 105 Carbon Dioxide 26 Anion Gap 8 BUN 10.8 Creatinine 0.8 Est GFR (CKD-EPI)AfAm 102.47 Est GFR (CKD-EPI)NonAf 88.41 Random Glucose 83 Calcium 8.9 Total Bilirubin 0.3 AST 6 L ALT 11 L Alkaline Phosphatase 66 Creatine Kinase 51 Troponin I < 0.02 Total Protein 7.2 Albumin 3.3 L Triglycerides 58 55 Cholesterol 170 Total LDL Cholesterol 89 HDL Cholesterol 68 H 08/21/19 14:58 RBC 4.82 MCV 79.8 L MCHC 33.2 RDW 15.1 MPV 10.1 Neutrophils % 50.3 D Lymphocytes % 42.7 H D Monocytes % 5.7 Eosinophils % 0.7 Basophils % 0.6 Medical Decision Making - Medical Decision Making 08/21/19 16:15 Patient seen and evaluated with the nurse practitioner. I agree with the overall evaluation, assessment, and management with the following summary of visit: 44y/o F sent from stress test for asymptomatic hypertension. BP improved here, feels well and is without complaints. exam wnl, s1s2 rrr, ctab, no edema, neuro nl 44y/o F with elevated BP at stress test, now normalized BP without red flags on history/pe. seen [facility] Dr. Medina, will d/c on increased amlodipine dose. f/u outpt, understands return criteria *DC/Admit/Observation/Transfer Diagnosis at time of Disposition: HTN (hypertension) - Referrals Referrals: Adrianna Hay MD [Primary Care Provider] - - Patient Instructions - Post Discharge Activity
--- NOTE | 2019-08-21 16:46 | PDOC ---
History of Present Illness - General Chief Complaint: Blood Pressure Problem Stated Complaint: SENT BY PCP/ HYPERTENSION Time Seen by Provider: 08/21/19 14:34 History Source: Patient Exam Limitations: No Limitations Past History - Travel Traveled outside of the country in the last 30 days: No Close contact w/someone who was outside of country & ill: No - Past Medical History Allergies/Adverse Reactions: Allergies Allergy/AdvReac Type Severity Reaction Status Date / Time No Known Drug Allergies Allergy Verified 08/21/19 14:38 Home Medications: Ambulatory Orders Amlodipine Besylate [Norvasc -] 5 mg PO DAILY 08/08/19 Aspirin 81 mg PO DAILY 08/08/19 Metformin HCl [Glucophage] 500 mg PO DAILY 08/08/19 Omeprazole 20 mg PO DAILY 08/08/19 Anemia: Yes (IN THE PAST) Asthma: Yes Cancer: Yes (BREAST) Cardiac Disorders: No CVA: No COPD: No CHF: No Dementia: No Diabetes: No GI Disorders: Yes (ACID REFLUX) Disorders: No HTN: Yes ("I TAKE A BABY ASA FOR HTN") Hypercholesterolemia: No Liver Disease: No Seizures: No Thyroid Disease: No - Surgical History Abdominal Surgery: Yes (GASTRIC SLEEVE 04/2017) Appendectomy: No Cardiac Surgery: No Cholecystectomy: Yes Lung Surgery: No Neurologic Surgery: No Orthopedic Surgery: No - Suicide/Smoking/Psychosocial Hx Smoking Status: No (STOPPED 12/07/12) Smoking History: Never smoked Have you smoked in the past 12 months: Yes Number of Cigarettes Smoked Daily: 4 If you are a former smoker, when did you quit?: 07/05/14 Hx Alcohol Use: No Drug/Substance Use Hx: No Substance Use Type: None Hx Substance Use Treatment: No Review of Systems - Review of Systems Able to Perform ROS?: Yes Comments:: 08/21/19 16:42 CONSTITUTIONAL: Absent: fever, chills, diaphoresis, generalized weakness, malaise, loss of appetite HEENT: Absent: rhinorrhea, nasal congestion, throat pain, throat swelling, difficulty swallowing, mouth swelling, ear pain, eye pain, visual Changes CARDIOVASCULAR: Present: reported hypertension Absent: chest pain, loss of consciousness, palpitations, irregular heart rate, peripheral edema RESPIRATORY: Absent: cough, shortness of breath, dyspnea with exertion, orthopnea, wheezing, stridor, hemoptysis GASTROINTESTINAL: Absent: abdominal pain, abdominal distension, nausea, vomiting, diarrhea, constipation, melena, hematochezia GENITOURINARY: Absent: dysuria, frequency, urgency, hesitancy, hematuria, flank pain, genital pain MUSCULOSKELETAL: Present: L shoulder pain Absent: myalgia, arthralgia, joint swelling SKIN: Absent: rash, itching, pallor HEMATOLOGIC/IMMUNOLOGIC: Absent: easy bleeding, easy bruising, lymphadenopathy, frequent infections ENDOCRINE: Absent: unexplained weight gain, unexplained weight loss, heat intolerance, cold intolerance NEUROLOGIC: Absent: headache, focal weakness or paresthesias, dizziness, unsteady gait, seizure, mental status changes, bladder or bowel incontinence PSYCHIATRIC: Absent: anxiety, depression, suicidal or homicidal ideation, hallucinations. Is the patient limited Russian proficient: No *Physical Exam - Vital Signs Last Vital Signs Temp Pulse Resp BP Pulse Ox 98.3 F 84 18 156/93 98 08/21/19 14:38 08/21/19 14:38 08/21/19 14:38 08/21/19 14:38 08/21/19 14:38 - Physical Exam Comments: 08/21/19 16:45 GENERAL: Well developed, well nourished. Awake and alert. No acute distress. HEENT: Normocephalic, atraumatic. PERRLA, EOMI. No conjunctival pallor. Sclera are non- icteric. Moist mucous membranes. Oropharynx is clear. NECK: Supple. Full ROM. No JVD. Carotid pulses 2+ and symmetric, without bruits. No thyromegaly. No lymphadenopathy. CARDIOVASCULAR: Regular rate and rhythm. No murmurs, rubs, or gallops. Distal pulses are 2+ and symmetric. PULMONARY: No evidence of respiratory distress. Lungs clear to auscultation bilaterally. No wheezing, rales or rhonchi. ABDOMINAL: Soft. Non-tender. Non-distended. No rebound or guarding. No organomegaly. Normoactive bowel sounds. MUSCULOSKELETAL Normal range of motion at all joints. No bony deformities or tenderness. No CVA tenderness. EXTREMITIES: No cyanosis. No clubbing. No edema. No calf tenderness. SKIN: Warm and dry. Normal capillary refill. No rashes. No jaundice. NEUROLOGICAL: Alert, awake, appropriate. Cranial nerves 2-12 intact. No deficits to light touch and temperature in face, upper extremities and lower extremities. No motor deficits in the in face, upper extremities and lower extremities. Normoreflexic in the upper and lower extremities. Normal speech. Toes are down- going bilaterally. Gait is normal without ataxia. PSYCHIATRIC: Cooperative. Good eye contact. Appropriate mood and affect. ED Treatment Course - LABORATORY CBC & Chemistry Diagram: 08/21/19 14:58 08/21/19 14:58 - ADDITIONAL ORDERS Additional order review: Laboratory Results 08/21/19 08/21/19 08/21/19 14:58 14:58 14:58 PT with INR 12.30 INR 1.04 Sodium Potassium Chloride Carbon Dioxide Anion Gap BUN Creatinine Est GFR (CKD-EPI)AfAm Est GFR (CKD-EPI)NonAf Random Glucose Calcium Total Bilirubin AST ALT Alkaline Phosphatase Creatine Kinase Troponin I Total Protein Albumin Triglycerides 58 Cholesterol Total LDL Cholesterol HDL Cholesterol Blood Type B POSITIVE Antibody Screen Negative 08/21/19 14:58 PT with INR INR Sodium 139 Potassium 3.7 Chloride 105 Carbon Dioxide 26 Anion Gap 8 BUN 10.8 Creatinine 0.8 Est GFR (CKD-EPI)AfAm 102.47 Est GFR (CKD-EPI)NonAf 88.41 Random Glucose 83 Calcium 8.9 Total Bilirubin 0.3 AST 6 L ALT 11 L Alkaline Phosphatase 66 Creatine Kinase 51 Troponin I < 0.02 Total Protein 7.2 Albumin 3.3 L Triglycerides 55 Cholesterol 170 Total LDL Cholesterol 89 HDL Cholesterol 68 H Blood Type Antibody Screen 08/21/19 14:58 RBC 4.82 MCV 79.8 L MCHC 33.2 RDW 15.1 MPV 10.1 Neutrophils % 50.3 D Lymphocytes % 42.7 H D Monocytes % 5.7 Eosinophils % 0.7 Basophils % 0.6 Medical Decision Making - Medical Decision Making 08/21/19 16:45 The patient is a 44 y/o F with PMH of HTN, gastric sleeve surgery, presents to the ER for an elevated blood pressure reading at Dr. Vizcaino's office during her stress test. The pressures were reported to be 196/136, and 160/120 prior to the stress test. The stress test was not performed and she was sent to the ER for evaluation. Denies headache, dizziness, lightheadedness, chest pain, and shortness of breath. The patient also notes she has L shoulder pain which is an exacerbation of her chronic pain after she twisted it getting out the car this morning. Denies neck pain. A/P: hypertension Pt currently asymptomatic in Triage TTP of the L shoulder at the trapezius consistent with muscle spasm; head CT cancelled. No neuro deficits and asymptomatic. Pt is in agreement for plan Pressures consistently 160/90 in the ER Spoke with Dr. Iyer. States that if her pressure remains stable to give her 5mg of amlodipine and have the patient start her new prescription for amlodipine 10mg tomorrow and follow up in the office 5mg amlodipine given Repeat pressure 144/92 DC home I discussed the physical exam findings, ancillary test results and final diagnoses with the patient. I answered all of the patient's questions. The patient was satisfied with the care received and felt comfortable with the discharge plan and treatment plan. The Patient agrees to follow up with the primary care physician/specialist within 24-72 hours. Return precautions were given. *DC/Admit/Observation/Transfer Diagnosis at time of Disposition: HTN (hypertension) Qualifiers: Hypertension type: essential hypertension Qualified Code(s): I10 - Essential ( primary) hypertension - Discharge Dispostion Disposition: HOME Condition at time of disposition: Stable Decision to Admit order: No - Referrals Referrals: Adrianna Hay MD [Primary Care Provider] - - Patient Instructions Printed Discharge Instructions: DI for High Blood Pressure Additional Instructions: You were evaluated for your high blood pressure It was stable at 160/90 during your stay We gave you 5mg of additional amlodipine supervisor blood the prescription sent by Dr. Gillis for 10mg of Amlodipine and start taking tomorrow as directed Return to the ER for headache, chest pain, dizziness, pressure of 180/90 at home despite taking meds, or if you have any changes in your symptoms - Post Discharge Activity Forms/Work/School Notes: Back to Work
[2019-08-21] MEDS ORDERED: amLODIPine BESYLATE 5 MG TABLET (FP) PO ONE (17:01)
[2019-08-21] MEDS ORDERED: amLODIPine BESYLATE 5 MG TABLET (FP) ONE (17:41)
[2019-08-21 17:52] VITALS: BP 144/96; PULSE 70
--- NOTE | 2019-08-22 11:05 | EKG ---
Test Reason : Blood Pressure : / mmHG Vent. Rate : 076 BPM Atrial Rate : 076 BPM P-R Int : 148 ms QRS Dur : 082 ms QT Int : 386 ms P-R-T Axes : 040 001 -04 degrees QTc Int : 434 ms NORMAL SINUS RHYTHM POSSIBLE LEFT ATRIAL ENLARGEMENT BORDERLINE ECG WHEN COMPARED WITH ECG OF 08-AUG-2019 23:33, NONSPECIFIC T WAVE ABNORMALITY NO LONGER EVIDENT IN ANTEROLATERAL LEADS Confirmed by STEPH SCHROEDER, JED ([id number]) on 08/22/2019 11:05:31 AM Referred By: Confirmed By:JED CHOI MD
== END 2019-08-21 17:50 | disposition home or self-care (01) ==
LOC: JER 14:29
DX: I10 Essential (primary) hypertension (principal); E11.9 Type 2 diabetes mellitus without complications; Z79.84 Long term (current) use of oral hypoglycemic drugs; J45.909 Unspecified asthma, uncomplicated; K21.9 Gastro-esophageal reflux disease without esophagitis; Z86.2 Personal history of diseases of the blood and blood-forming organs and certain disorders involving the immune mechanism; Z79.82 Long term (current) use of aspirin; Z98.84 Bariatric surgery status; Z85.3 Personal history of malignant neoplasm of breast
CPT/HCPCS: 36415; 80053; 80061; 82550; 83721; 84478; 84484; 85025; 85610; 86850; 86900; 86901; 93005; 93010; 99283-25